=== PATIENT | female | born 1925 | race Caucasian/White ===

== ENCOUNTER 2017-09-05 19:42 | Inpatient (IN) | payer MEDICARE, MEDICAID ==
[~2017-09-05] VITALS: Ht 160 cm; Wt 51.3 kg
[~2017-09-05 19:42] MED LIST: AMLO5TAB4 PO; ASPI81TA5 PO; CARV25TA2 PO; ESCI10TA PO; ESOM40SU PO; Erythromycin Ethylsuccinate PO; LOSA50TA3 PO; METF500T4 PO; METO-295 PO; SIMV20TA2 PO
[2017-09-05] MEDS ORDERED: LEVOFLOXACIN 750 MG /D5W 150ML 150 ML IV ONE ×2 (20:00→20:07)
[2017-09-05] MEDS ORDERED: CEFTRIAXONE 1GM BAG (ER ONLY) 50 ML IV ONE ×2 (20:00→20:07)
[2017-09-05] MEDS ORDERED: ACETAMINOPHEN 650 MG/SUPP.RECT RC ONE ×2 (20:00→20:08)
[2017-09-05] MEDS ORDERED: IV NS 0.9% 1,000 ML BAG IV ONE ×2 (20:00)
--- NOTE | 2017-09-05 20:00 | NUR ---
PT BIB [facility] TO ER BED 5, PT APPEARS LETHARGIC AND LABEL DRIER REPORTS ALTERED MENTAL STATUS. PT VSS/RESP EVEN UNLABORED/SKIN WARM AND DRY. PARAMEDICS STATE PT VOMITED ONCE ENROUTE. PT RECTAL TEMP 103.4. MD AT BEDSIDE FOR EVAL.
--- NOTE | 2017-09-05 20:03 | NUR ---
18 TO L WRIST USING ASEPTIC TECH, BLOOD CULT X 2 AND BLOOD SAMPLE HANDED OVER TO LAB AT BEDSIDE.
[2017-09-05 20:04] LABS: BASOPHILS # (AUTO) 0.1 /CMM (0.0-0.2); BASOPHILS % (AUTO) 1.1 % (0.0-2.0); EOSINOPHILS % (AUTO) 0.1 % (0.0-6.0); HEMATOCRIT 35 % (33-45); HEMOGLOBIN 11.5 g/dL (11.5-14.8); LYMPHOCYTES # (AUTO) 0.3 /CMM (0.8-4.8); LYMPHOCYTES % (AUTO) 2.8 % (20.0-44.0); MEAN CORPUSCULAR HEMOGLOBIN 29 PG (26.0-33.0); MEAN CORPUSCULAR HGB CONC 33 g/dl (31.0-36.0); MEAN CORPUSCULAR VOLUME 86 fL (82-100); MONOCYTES # (AUTO) 0.2 /CMM (0.1-1.30); MONOCYTES % (AUTO) 2.2 % (2.0-12.0); NEUTROPHILS # (AUTO) 8.9 /CMM (1.8-8.9); NEUTROPHILS % (AUTO) 93.8 % (43.0-81.0); PLATELET COUNT (AUTO) 121 /CMM (150-450); RED BLOOD CELL COUNT(AUTO) 4.03 MIL/uL (4.0-5.2); WHITE BLOOD COUNT (AUTO) 9.5 K/uL (4.3-11.0)
--- NOTE | 2017-09-05 20:08 | NUR ---
URINE COLLECTED VIA STRAIGHT CATH PER DR. SMALL ORDERS.
[2017-09-05 20:18] LABS: CALCIUM, SERUM 8.5 mg/dL (8.5-10.1); CARBON DIOXIDE 25 mmol/L (21-32); CHLORIDE 100 mmol/L (98-107); GLUCOSE 194 mg/dL (74-106); SODIUM SERUM 133 mmol/L (136-145); UREA NITROGEN, BLOOD 27 mg/dL (7-18)
--- NOTE | 2017-09-05 20:19 | NUR ---
MEDICATED PER MD ORDERS.
[2017-09-05 20:20] LABS: INR 0.95 (0.87-1.13); PROTHROMBIN TIME 9.9 SECS (9.5-12.7)
[2017-09-05 20:22] LABS: APPEARANCE,URINE Slightly Cloudy (CLEAR); BILIRUBIN,URINE Negative (NEGATIVE); BLOOD, URINE Moderate Ery/uL (NEGATIVE); COLOR,URINE Yellow (YELLOW); KETONES,URINE Negative (NEGATIVE); LEUKOCYTE ESTERASE ,URINE Negative (NEGATIVE); NITRITE, URINE Negative (NEGATIVE); PROTEIN,URINE >=300 mg/dl (NEGATIVE); UGLUCOSE Negative (NEGATIVE)
[2017-09-05 20:23] LABS: ALANINE AMINOTRANSFERASE 497 U/L (12-78); ALBUMIN 2.9 g/dL (3.4-5.0); ALKALINE PHOSPHATASE 432 U/L (46-116); ASPARTATE AMINOTRANSFERASE 1130 U/L (15-37); BILIRUBIN,DIRECT 0.8 mg/dL (0.0-0.2); BILIRUBIN,TOTAL 1.4 mg/dL (0.2-1.0); TOTAL PROTEIN, SERUM 6.6 g/dL (6.4-8.2)
--- NOTE | 2017-09-05 20:25 | NUR ---
RADIOLOGY AT BEDSIDE FOR CXR
[2017-09-05 20:29] LABS: TROPONIN I < 0.017 ng/mL (0.00-0.056)
[2017-09-05 20:47] LABS: BACTERIA,URINE Few /HPF (None Seen); SQUAMOUS EPITHELIAL CELL,UR Few /HPF (None Seen)
--- NOTE | 2017-09-05 21:05 | NUR ---
PT TO CT VIA STETCHER. VSS.
[2017-09-05] MEDS ORDERED: ONDANSETRON HCL/PF 4 MG/2 ML VIAL ONE (21:19)
--- NOTE | 2017-09-05 21:20 | NUR ---
PT BACK FROM CT, VSS. PT C/O NAUSEA, MADE AWARE. NEW ORDERS RECEIVED.
--- NOTE | 2017-09-05 21:29 | NUR ---
PT MEDICATED ORDERED PER MD.
[2017-09-05] MEDS ORDERED: ONDANSETRON HCL/PF 4 MG/2 ML VIAL IV ONE (21:30)
--- NOTE | 2017-09-05 21:34 | NUR ---
DR. SMALL AT BEDSIDE SPEAKING TO PT REGARDING RESULTS.
--- NOTE | 2017-09-05 21:43 | NUR ---
INSOLE STIFFENER AT BEDSIDE.
--- NOTE | 2017-09-05 22:11 | NUR ---
RONAK ([facility]) [phone]
[2017-09-05] MEDS ORDERED: MAG HYDROX/AL HYDROX/SIMETH 30 ML UDC PO PRN (22:30)
[2017-09-05] MEDS ORDERED: MAGNESIUM HYDROXIDE 30 ML UDC PO PRN (22:30)
[2017-09-05] MEDS ORDERED: ONDANSETRON HCL/PF 4 MG/2 ML VIAL IVP PRN (22:30)
--- NOTE | 2017-09-05 22:39 | NUR ---
PT ADMIT TO [facility]. REPORT GIVEN TO GRACE WILSON FOR KIKE.
--- NOTE | 2017-09-05 22:40 | NUR ---
PT TRANSPORTED TO [facility] B[facility] 107 VIA STRETCHER WITH RN PER ACLS PROTOCOL. VSS.
[2017-09-05 22:45] VITALS: BP 140/83
--- NOTE | 2017-09-05 22:50 | NUR ---
RN NOTES RECEIVED PATIENT AWAKE ON A STRETCHER FROM ER WITH NO RESPIRATORY DISTRESS OR SHORTNESS OF BREATH. BREATHING EVEN AND UNLABORED. ON 2 LITERS 02 VIA NASAL CANNULA TOLERATING WELL. TRANSFERRED TO BED SAFELY AND COMFORTABLY. VITAL SIGNS WNL. SKIN ASSESSMENT DONE. ALERT AND ORIENTED. [place]ORE[place] SPEAKING. COOPERATIVE. CONTINENT OF BLADDER FUNCTION. NO COMPLAINT OF PAIN OF THIS TIME. WILL CONTINUE TO MONITOR.
[2017-09-05] MEDS ORDERED: DEXTROSE 50%-WATER 50 ML DISP.SYRIN IV PRN (23:30)
[2017-09-06] VITALS: BP_SYST 140; BP_SYST 148; BP_DIAS 74; BP_DIAS 83
[2017-09-06 04:00] VITALS: BP 117/45
--- NOTE | 2017-09-06 06:28 | NUR ---
RN CLOSING NOTES PATIENT IN BED SLEEPING COMFORTABLY WITH NO DISTRESS NOTED. BREATHING EVEN AND UNLABORED. NO SIGNIFICANT CHANGE OF CONDITION. VITAL SIGNS WNL. WILL ENDORSE TO AM SHIFT FOR CONTINUITY OF CARE.
[2017-09-06 06:33] LABS: HEMATOCRIT 32 % (33-45); HEMOGLOBIN 10.4 g/dL (11.5-14.8); LYMPHOCYTES # (AUTO) 0.2 /CMM (0.8-4.8); LYMPHOCYTES % (AUTO) 1.1 % (20.0-44.0); MEAN CORPUSCULAR HEMOGLOBIN 29 PG (26.0-33.0); MEAN CORPUSCULAR HGB CONC 33 g/dl (31.0-36.0); MEAN CORPUSCULAR VOLUME 89 fL (82-100); MONOCYTES # (AUTO) 0.4 /CMM (0.1-1.30); MONOCYTES % (AUTO) 2.8 % (2.0-12.0); NEUTROPHILS # (AUTO) 13.3 /CMM (1.8-8.9); NEUTROPHILS % (AUTO) 96.1 % (43.0-81.0); PLATELET COUNT (AUTO) 102 /CMM (150-450); RDW COEFFICIENT OF VARIATION 14.5 (11.5-15.0); WHITE BLOOD COUNT (AUTO) 13.8 K/uL (4.3-11.0)
[2017-09-06] MEDS: BLOOD SUGAR DIAGNOSTIC 1 EACH STRIP IN SCH ×4 (06:39→21:24)
[2017-09-06] MEDS: INSULIN REGULAR, HUMAN 100 UNIT/ML 3 ML VIAL SQ PRN (06:42)
[2017-09-06 06:51] LABS: CALCIUM, SERUM 8.1 mg/dL (8.5-10.1); CARBON DIOXIDE 28 mmol/L (21-32); CHLORIDE 106 mmol/L (98-107); GLUCOSE 182 mg/dL (74-106); MAGNESIUM 1.6 mg/dL (1.8-2.4); PHOSPHORUS 3.3 mg/dL (2.5-4.9); POTASSIUM 4.1 mmol/L (3.5-5.1); SODIUM SERUM 141 mmol/L (136-145); UREA NITROGEN, BLOOD 23 mg/dL (7-18)
[2017-09-06 06:56] LABS: CHOLESTEROL 97 mg/dL (<200); HDL CHOLESTEROL 50 mg/dL (40-60); LDL 42 mg/dL (0-99); THYROID STIMULATING HORMONE 1.596 uIU/mL (0.358-3.74); TRIGLYCERIDES 31 mg/dL (30-150)
[2017-09-06 08:00] VITALS: BP 125/93
--- NOTE | 2017-09-06 08:00 | NUR ---
TD/RN AM SHIFT INITIAL NOTES RECEIVED PT AWAKE SITTING IN BED. A/O X 4, JAPANESE SPEAKING, DENIES PAIN THROUGH AN CLAIM SERVICE REPRESENTATIVE. NO FEVER OR ACUTE CHANGE OF CONDITION. ON 2L O2 VIA N/C SATURATING @ 100%, LUNG SOUNDS CLEAR. ON TELE MONITORING, AV PACING, HR 69, PACEMAKER ON LEFT CHEST WALL. IV SITE FLUSHED, PATENT, SL. NO S/S OF INFECTION. PT IS COMFORTABLE AT THIS TIME. SCHEDULED AM MEDS TO BE GIVEN. CL WITHIN REACHED AND SAFETY MAINTAINED. ON GOING MONITORING.
[2017-09-06] MEDS ORDERED: REPA1TAB6 PO (08:06)
[2017-09-06] MEDS ORDERED: MOME17SP (08:06)
[2017-09-06] MEDS ORDERED: OMEG1CAP40 PO (08:06)
[2017-09-06] MEDS ORDERED: NEBI20TA2 PO (08:06)
[2017-09-06] MEDS ORDERED: CLON0.2T PO (08:06)
[2017-09-06] MEDS ORDERED: FOLI1TAB16 PO (08:06)
[2017-09-06] MEDS ORDERED: AZIL80TA PO (08:06)
--- NOTE | 2017-09-06 08:30 | NUR ---
TD/RN ROUNDS - DR. MANCERA PT SEEN & EXAMINED BY DR. MANCERA. NO NEW ORDERS RECEIVED AT THIS TIME.
[2017-09-06] MEDS: FAMOTIDINE (20 MG) 20 MG TABLET PO SCH (08:34)
[2017-09-06] MEDS: IV NS 0.9% 1,000 ML IV PRN ×2 (09:53→21:29)
[2017-09-06] MEDS: Magnesium 1GM/D5W 100ML PREMIX 100 ML IV SCH ×2 (09:59→11:47)
--- NOTE | 2017-09-06 11:30 | NUR ---
MS1/RN ROUNDS - DR. WAITE PT SEEN & EXAMINED BY DR. WAITE. NO NEW ORDERS RECEIVED. MONITORING CONTINUED.
[2017-09-06] MEDS ORDERED: Z GUARD REMEDY 2 OZ OINT TP PRN (13:30)
[2017-09-06 16:00] VITALS: BP_SYST 125; BP_SYST 131; BP_DIAS 56; BP_DIAS 93
[2017-09-06] MEDS: ACETAMINOPHEN 325 MG TABLET PO PRN (17:50)
--- NOTE | 2017-09-06 19:24 | NUR ---
MS1/RN AM SHIFT END NOTES ALL NEEDS MET. NO ACUTE CHANGE OF CONDITION NOTED DURING THE SHIFT. PT ENDORSED TO PM NURSE TO CONTINUE CARE. CL WITHIN REACHED AND SAFETY MAINTAINED.
--- NOTE | 2017-09-06 19:40 | NUR ---
MS RN NOTE: PATIENT RESTING IN BED, NO ACUTE DISTRESS NOTED. BREATHING EVEN AND UNLABORED, NO SOB NOTED. IV TO RFA IN PLACE. NO S/S OF HYPER/HYPOGLYCEMIA NOTED. BED LOCKED AND IN LOWEST POSITION, CALL LIGHT IN REACH. WILL CONTINUE TO MONITOR.
[2017-09-06 20:00] VITALS: BP 114/58
[2017-09-06] MEDS ORDERED: CEFTRIAXONE 1 G in IV D5W 50 ML IV SCH (21:00)
[2017-09-06] MEDS: PIPERACILLIN /TAZOBACTAM 2.25 G in IV D5W 50 ML IV SCH (21:23)
[2017-09-06] MEDS: NEOMY SULF/BACITRAC ZN/POLY 15 GM TUBE TP SCH (21:24)
--- NOTE | 2017-09-06 21:30 | NUR ---
MS RN NOTE: PATIENT BLOOD SUGAR LEVEL 122 MG/DL, NO INSULIN NEEDED PER SLIDING SCALE. NO S/S OF HYPER/HYPOGLYCEMIA NOTED. WILL CONTINUE TO MONITOR.
[2017-09-07] MEDS: ACETAMINOPHEN 325 MG TABLET PO PRN (00:30)
[2017-09-07 04:00] VITALS: BP 154/79
[2017-09-07] MEDS: PIPERACILLIN /TAZOBACTAM 2.25 G in IV D5W 50 ML IV SCH ×3 (05:34→21:14)
[2017-09-07 06:10] LABS: EOSINOPHILS % (AUTO) 0.1 % (0.0-6.0); HEMATOCRIT 33 % (33-45); LYMPHOCYTES # (AUTO) 0.2 /CMM (0.8-4.8); LYMPHOCYTES % (AUTO) 1.2 % (20.0-44.0); MEAN CORPUSCULAR HEMOGLOBIN 29 PG (26.0-33.0); MEAN CORPUSCULAR HGB CONC 33 g/dl (31.0-36.0); MEAN CORPUSCULAR VOLUME 89 fL (82-100); MONOCYTES # (AUTO) 0.7 /CMM (0.1-1.30); NEUTROPHILS # (AUTO) 12.4 /CMM (1.8-8.9); NEUTROPHILS % (AUTO) 93.7 % (43.0-81.0); PLATELET COUNT (AUTO) 102 /CMM (150-450); RDW COEFFICIENT OF VARIATION 14.3 (11.5-15.0); RED BLOOD CELL COUNT(AUTO) 3.75 MIL/uL (4.0-5.2); WHITE BLOOD COUNT (AUTO) 13.2 K/uL (4.3-11.0)
--- NOTE | 2017-09-07 06:10 | NUR ---
MS RN NOTE: PATIENT RESTING IN BED, NO ACUTE DISTRESS NOTED. BREATHING EVEN AND UNLABORED, NO SOB NOTED. IV TO RFA IN PLACE, INFUSING NS AT 100 ML/HR. NO S/S OF HYPER/HYPOGLYCEMIA NOTED. BED LOCKED AND IN LOWEST POSITION, CALL LIGHT IN REACH. WILL ENDORSE TO DAY NURSE TO CONTINUE WITH PLAN OF CARE.
[2017-09-07 06:14] LABS: ALANINE AMINOTRANSFERASE 312 U/L (12-78); ALBUMIN 2.4 g/dL (3.4-5.0); ALKALINE PHOSPHATASE 323 U/L (46-116); ASPARTATE AMINOTRANSFERASE 188 U/L (15-37); BILIRUBIN,TOTAL 3.4 mg/dL (0.2-1.0); CALCIUM, SERUM 8.3 mg/dL (8.5-10.1); CARBON DIOXIDE 26 mmol/L (21-32); CHLORIDE 103 mmol/L (98-107); CREATININE 1.1 mg/dL (0.6-1.3); GLUCOSE 128 mg/dL (74-106); MAGNESIUM 2.3 mg/dL (1.8-2.4); PHOSPHORUS 2.8 mg/dL (2.5-4.9); POTASSIUM 3.9 mmol/L (3.5-5.1); SODIUM SERUM 136 mmol/L (136-145); TOTAL PROTEIN, SERUM 5.6 g/dL (6.4-8.2); UREA NITROGEN, BLOOD 24 mg/dL (7-18)
[2017-09-07 06:17] LABS: TROPONIN I 0.048 ng/mL (0.00-0.056)
[2017-09-07] MEDS: BLOOD SUGAR DIAGNOSTIC 1 EACH STRIP IN SCH ×4 (07:29→21:28)
--- NOTE | 2017-09-07 07:30 | NUR ---
MS RN OPENING NOTE PATIENT IS ALERT AND ORIENTED x4. NO PAIN AT THIS TIME. NO FACIAL GRIMACING NOTED FOR PAIN. NO SOB OR DISTRESS NOTED. ON 2L/MIN OF OXYGEN VIA NASAL CANNULA. HAS LEFT CHEST WALL PACEMAKER. BEDREST, UNTIL EVALUATED BY PHYSICAL THERAPY. HAS WOUND TREATMENT TO BE DONE THROUGHOUT SHIFT AND CHANGE NEEDED IF SOILED. ON [facility] DIET, TOLERATING FOOD WELL. BLOOD SUGAR TO BE MONITORED THROUGHOUT SHIFT AND WILL GIVE INSULIN NEEDED. RIGHT FOREARM INTACT AND PATENT NO REDNESS OR SWELLING NOTED. IV FLUIDS RUNNING AT THIS TIME, NS AT 100 ML/HR TOLERATING WELL. PENDING X-RAY THAT WILL BE DONE TODAY, LABS THIS MORNING. WILL REPLACE NEEDED. WILL CONTINUE TO MONITOR PATIENT
[2017-09-07 08:00] VITALS: BP 160/84
[2017-09-07] MEDS: FAMOTIDINE (20 MG) 20 MG TABLET PO SCH (08:58)
--- NOTE | 2017-09-07 09:00 | NUR ---
MS RN NOTE PATIENT'S BLOOD SUGAR-133. 2 UNITS OF INSULIN GIVEN. WILL MONITOR FOR HYPO/HYPERGLYCEMIA THROUGHOUT SHIFT
[2017-09-07] MEDS: INSULIN REGULAR, HUMAN 100 UNIT/ML 3 ML VIAL SQ PRN ×4 (09:04→21:36)
[2017-09-07] MEDS: NEOMY SULF/BACITRAC ZN/POLY 15 GM TUBE TP SCH ×2 (09:05→21:31)
--- NOTE | 2017-09-07 11:30 | NUR ---
MS RN NOTE PER MD TO AMBULATE PATIENT WITH ASSISTANCE. SHIFT STACKER AND I ASSISTED PATIENT TO RESTROOM WITH WALKER. PATIENT AMBULATES WELL, NEEDS STANDBY ASSISTANCE. PATIENT TOLERATED AMBULATION WELL. PATIENT REFUSED TO SIT AT BEDSIDE IN CHAIR. CHARGE NURSE INFORMED. BED ALARM ON
[2017-09-07] MEDS ORDERED: CLONIDINE HCL 0.2 MG TABLET PO PRN (13:30)
[2017-09-07] MEDS ORDERED: hydrALAZINE HCL 25 MG TABLET PO PRN (13:30)
[2017-09-07] MEDS ORDERED: MOMETASONE FUROATE NASAL SUSP 17 GM BOTTLE PRN (13:30)
[2017-09-07] MEDS: AMLODIPINE BESYLATE 5 MG TABLET PO SCH (13:53)
[2017-09-07 16:00] VITALS: BP 144/60
[2017-09-07] MEDS: IV NS 0.9% 1,000 ML IV PRN (16:53)
--- NOTE | 2017-09-07 18:23 | NUR ---
MS RN CLOSING NOTE PATIENT IS ALERT AND ORIENTED x4. NO PAIN AT THIS TIME. NO SOB OR DISTRESS NOTED. O2 SATURATION ON ROOM AIR AT 97%. LEFT CHEST WALL PACEMAKER IN PLACE. BEDREST, AMBULATES WITH ASSISTANCE. RIGHT NIELSEN ABRASION TREATMENT DONE, KEPT CLEAN DRY AND INTACT. BLOOD SUGAR MONITORED THROUGHOUT SHIFT, AND INSULIN GIVEN NEEDED. RIGHT FOREARM 22G INTACT AND PATENT, IV FLUIDS RUNNING AT THIS TIME, NS AT 100 ML/HR RUNNING WELL. HAS BILATERAL UPPER EXTREMITY BRUISING NOTED. HAS CBC, BMP, MAG AND PHOS LABS TOMORROW. TRIED CALLING LORE (DTR) AND RONAK (GRAND DAUGHTER) FOR TELEPHONE CONSENT FOR HIDA SCAN TO BE DONE TOMORROW. WILL ENDORSE TO BAKERY DECORATOR NURSE. AWAITING PHYSICAL THERAPY EVALUATION STILL. 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 MILD CARDIOMEGALY AND AORTIC ATHEROSCLEROSIS. D/C PLANNING STARTED, ANTICIPATING POSSIBLE TWO WEEK ANTIBIOTIC COURSE. ALL DUE MEDICATIONS GIVEN ORDERED. ALL NURSING CARE NEEDS ATTENDED. WILL ENDORSE TO BAKERY DECORATOR NURSE FOR KIKE
[2017-09-07 20:00] VITALS: BP 168/76
[2017-09-07] MEDS: SIMVASTATIN 20 MG TABLET PO SCH (21:36)
--- NOTE | 2017-09-08 03:18 | NUR ---
MS-1/OPERATIONS LEAD PT LEFT FOREARM IV NO LONGER WORKING. PT REFUSING NEW LINE PLACEMENT RISK AND BENIFIT EXPLAINED TO PT BY CHARGE NURSE SERAFIN. WILL CONTINUE TO MONITOR.
[2017-09-08 04:00] VITALS: BP 161/85
[2017-09-08] MEDS: PIPERACILLIN /TAZOBACTAM 2.25 G in IV D5W 50 ML IV SCH ×2 (05:00→12:41)
--- NOTE | 2017-09-08 05:10 | NUR ---
MED NOTE: 0500 ZOSYLuaren HELD NO IV ACCESS.
[2017-09-08 06:44] LABS: BASOPHILS % (AUTO) 0.3 % (0.0-2.0); EOSINOPHILS # (AUTO) 0.3 /CMM (0.0-0.7); EOSINOPHILS % (AUTO) 2.5 % (0.0-6.0); HEMATOCRIT 34 % (33-45); HEMOGLOBIN 11.1 g/dL (11.5-14.8); LYMPHOCYTES # (AUTO) 0.7 /CMM (0.8-4.8); LYMPHOCYTES % (AUTO) 6.2 % (20.0-44.0); MEAN CORPUSCULAR HEMOGLOBIN 29 PG (26.0-33.0); MEAN CORPUSCULAR HGB CONC 33 g/dl (31.0-36.0); MEAN CORPUSCULAR VOLUME 88 fL (82-100); MONOCYTES # (AUTO) 0.7 /CMM (0.1-1.30); MONOCYTES % (AUTO) 6.2 % (2.0-12.0); NEUTROPHILS # (AUTO) 9.1 /CMM (1.8-8.9); NEUTROPHILS % (AUTO) 84.8 % (43.0-81.0); PLATELET COUNT (AUTO) 133 /CMM (150-450); RDW COEFFICIENT OF VARIATION 14.8 (11.5-15.0); RED BLOOD CELL COUNT(AUTO) 3.85 MIL/uL (4.0-5.2); WHITE BLOOD COUNT (AUTO) 10.7 K/uL (4.3-11.0)
[2017-09-08 06:58] LABS: CALCIUM, SERUM 8.3 mg/dL (8.5-10.1); CARBON DIOXIDE 26 mmol/L (21-32); CHLORIDE 104 mmol/L (98-107); CREATININE 0.9 mg/dL (0.6-1.3); GLUCOSE 93 mg/dL (74-106); MAGNESIUM 2.1 mg/dL (1.8-2.4); PHOSPHORUS 2.1 mg/dL (2.5-4.9); POTASSIUM 4.1 mmol/L (3.5-5.1); SODIUM SERUM 138 mmol/L (136-145); UREA NITROGEN, BLOOD 17 mg/dL (7-18)
[2017-09-08 08:00] VITALS: BP_SYST 167; BP_SYST 206; BP_DIAS 103; BP_DIAS 82
[2017-09-08] MEDS: CLONIDINE HCL 0.1 MG TABLET PO PRN (08:17)
[2017-09-08] MEDS: BLOOD SUGAR DIAGNOSTIC 1 EACH STRIP IN SCH ×4 (08:21→21:27)
[2017-09-08 09:11] VITALS: BP 167/82
--- NOTE | 2017-09-08 09:18 | NUR ---
WOUND CARE CONSULT: PT PRESENTS WITH RT ANTERIOR LOWER LEG WOUND, PRESENT ON ADMISSION. PT STATES THAT SHE BANGED HER LEG 2 WEEKS AGO. WOUND TREATMENT PREVIOUSLY ORDERED BY PMD. RECOMMEND PODIATRY CONSULT. DISCUSSED SKIN PROTECTION AND WOUND RECOMMENDATIONS WITH NURSING STAFF. PT IS AMBULATORY AND CONTINENT. CURRENT ALAN SCORE IS 16. WILL SEE PRN. VASQUEZ IN AGREEMENT WITH PLAN OF CARE. Addendum: 09/08/17 at 0919 by ALLYSON VARELA WNDNU Amended: Links added.
[2017-09-08] MEDS: NEOMY SULF/BACITRAC ZN/POLY 15 GM TUBE TP SCH ×2 (09:55→21:26)
[2017-09-08] MEDS: FOLIC ACID 1 MG TABLET PO SCH (09:55)
[2017-09-08] MEDS: FAMOTIDINE (20 MG) 20 MG TABLET PO SCH (09:55)
[2017-09-08] MEDS: AMLODIPINE BESYLATE 5 MG TABLET PO SCH (09:55)
[2017-09-08] MEDS: ASPIRIN EC 81 MG TABLET.DR PO SCH (09:55)
[2017-09-08 10:00] VITALS: BP 155/76
[2017-09-08] MEDS ORDERED: LEVO500T15 PO (11:43)
[2017-09-08] MEDS ORDERED: FUROSEMIDE 20 MG/2 ML VIAL IV ONE (12:00)
[2017-09-08] MEDS ORDERED: POTASSIUM PHOSPHATE MM 7.5 MMOL in IV D5W 100 ML IV SCH (12:30)
[2017-09-08] MEDS ORDERED: K PHOS NEUTRAL 250 MG TABLET PO ONE (15:30)
[2017-09-08 16:00] VITALS: BP 177/96
[2017-09-08] MEDS ORDERED: LEVOFLOXACIN (500MG) 500 MG TABLET PO ONE (16:30)
--- NOTE | 2017-09-08 18:30 | NUR ---
RN NOTE PT GOT BACK FROM [facility] SCAN, STABLE, BUT RESULTS ARE NOT UP YET, FAMILY FELT HESITANT TO TAKE HER HOME DUE TO PERCEIVED WEAKNESS. DR CASTRO OKAYED PT TO STAY UNTIL TOMORROW MORNING. WILL ENDORSE TO INSTRUCTOR DRAMATIC ARTS NURSE.
--- NOTE | 2017-09-08 19:30 | NUR ---
MS RN NOTE RECEIVED PATIENT AWAKE AND ALERT IN BED. [place] SPEAKING. ABLE TO MAKE NEEDS KNOWN. NO DISTRESS NOTED. PATIENT DENIES ANY PAIN.IV SITE TO LEFT HAND INTACT. BED LOCKED AND IN LOWEST POSITION. SIDE RAILS UP, CALL LIGHT WITHIN REACH. WILL CONTINUE TO MONITOR.
[2017-09-08 20:00] VITALS: BP 146/78
[2017-09-08] MEDS: SIMVASTATIN 20 MG TABLET PO SCH (21:27)
[2017-09-09] MEDS: CLONIDINE HCL 0.1 MG TABLET PO PRN (03:58)
[2017-09-09 04:00] VITALS: BP 168/87
--- NOTE | 2017-09-09 06:01 | NUR ---
MS RN NOTE PATIENT STABLE. BLOOD SUGAR WNL. NO COVERAGE NEEDED. WILL ENDORSE TO DAY SHIFT FOR KIKE.
[2017-09-09] MEDS: BLOOD SUGAR DIAGNOSTIC 1 EACH STRIP IN SCH (07:19)
[2017-09-09 08:00] VITALS: BP 139/77
[2017-09-09] MEDS: FOLIC ACID 1 MG TABLET PO SCH ×2 (08:55→09:00)
[2017-09-09] MEDS: FAMOTIDINE (20 MG) 20 MG TABLET PO SCH ×2 (08:56→09:00)
[2017-09-09] MEDS: ASPIRIN EC 81 MG TABLET.DR PO SCH ×2 (08:56→09:00)
[2017-09-09] MEDS: AMLODIPINE BESYLATE 5 MG TABLET PO SCH ×2 (08:56→09:00)
[2017-09-09] MEDS: NEOMY SULF/BACITRAC ZN/POLY 15 GM TUBE TP SCH (08:57)
[2017-09-09 09:00] VITALS: BP 139/77
--- NOTE | 2017-09-09 10:30 | NUR ---
DR. MEDINA IN DC ORDER GIVEN.
--- NOTE | 2017-09-09 12:10 | NUR ---
DC INSTRUCTIONS GIVEN TO DTR. AND GRANDDAUGHTER.HEP LOCK OUT. VERB. UNDERSTANDING.BELONGING SHEET SIGNED.TAKEN VIA W/C TO LOBBY ACC. BY OPHTHALMIC ASST AND FAMILY.
--- NOTE | 2017-09-09 12:10 | NUR ---
REFUSED DISCHARGE PHOTOS.
[2017-09-09] MEDS ORDERED: LEVOFLOXACIN (250MG) 250 MG TABLET PO SCH (17:00)
== END 2017-09-09 12:20 | disposition home health service (06) | DRG 871 ==
LOC: ER 19:43 → TELE-TD 22:23 → MEDSG1 09-06 09:11
PROVIDERS: ADMIT Nurse Practitioner Acute Care; ATTEND Nurse Practitioner Acute Care
DX: A41.9 Sepsis, unspecified organism (principal); G93.41 Metabolic encephalopathy; E87.2 Acidosis; E87.1 Hypo-osmolality and hyponatremia; D69.6 Thrombocytopenia, unspecified; I50.32 Chronic diastolic (congestive) heart failure; I11.0 Hypertensive heart disease with heart failure; N39.0 Urinary tract infection, site not specified; K57.92 Diverticulitis of intestine, part unspecified, without perforation or abscess without bleeding; I49.9 Cardiac arrhythmia, unspecified; Z95.0 Presence of cardiac pacemaker; Z90.49 Acquired absence of other specified parts of digestive tract; Z79.899 Other long term (current) drug therapy; Z79.84 Long term (current) use of oral hypoglycemic drugs; Z79.82 Long term (current) use of aspirin; K21.9 Gastro-esophageal reflux disease without esophagitis; I25.10 Atherosclerotic heart disease of native coronary artery without angina pectoris; E78.5 Hyperlipidemia, unspecified; E11.9 Type 2 diabetes mellitus without complications; B96.20 Unspecified Escherichia coli [E. coli] as the cause of diseases classified elsewhere; I34.0 Nonrheumatic mitral (valve) insufficiency; Z88.8 Allergy status to other drugs, medicaments and biological substances; Z98.890 Other specified postprocedural states; S81.811A Laceration without foreign body, right lower leg, initial encounter; X58.XXXA Exposure to other specified factors, initial encounter; Y92.9 Unspecified place or not applicable
CPT/HCPCS: 36415; 70450-TC; 71010-TC; 76705-TC; 78226; 80048-TC; 80053-TC; 80061-TC; 80076-TC; 81000-TC; 82140-TC; 82962-TC; 83605-TC; 83735-TC; 84100-TC; 84443-TC; 84484-TC; 85025-TC; 85730-TC; 87040-TC; 87081-TC; 87086-TC; 87186-TC; 93307-TC; A4606; A9537; G0480; J0696; J1815; J1940; J1956; J2405; J2543; J3475; J3490; J7030; J7060; Z7610